=== PATIENT | female | born 1975 | race Caucasian/White ===

== ENCOUNTER 2017-10-06 23:16 | Inpatient (IN) | payer OTHER ==
[~2017-10-06] VITALS: Ht 165.1 cm; Wt 72.2 kg
[2017-10-06 23:58] VITALS: Ht 165.1 cm; Wt 72.2 kg
[2017-10-07 00:46] LABS: BASOPHIL % 0.4 % (0-2); PLATELET COUNT 222 x10^3mcL (130-400); RED CELL DISTRIBUTION WIDTH 13.1 % (11.5-14.5)
[2017-10-07 01:04] LABS: ALBUMIN 3.7 g/dL (3.4-5.0); ALKALINE PHOSPHATASE 65 U/L (46-116); ALT/SGPT 68 U/L (14-59); AMYLASE 86 U/L (25-115); AST/SGOT 41 U/L (15-37); BILIRUBIN TOTAL 0.3 mg/dL (0.20-1.00); CALCIUM 8.6 mg/dL (8.5-10.1); CARBON DIOXIDE 28.8 mmol/L (21-32); CHLORIDE SERUM 100 mmol/L (98-107); CHOLESTEROL 110 mg/dL (<200); CREATININE SERUM 0.8 mg/dL (0.6-1.0); GFR1 > 60 mL/min; GLUCOSE SERUM 151 mg/dL (74-106); HDL CHOLESTEROL 40 mg/dL (40-60); LIPASE 115 IU/L (73-393); SODIUM SERUM 141 mmol/L (136-145); TOTAL PROTEIN, SERUM 8.4 g/dL (6.4-8.2)
[2017-10-07 01:06] LABS: POTASSIUM SERUM 2.7 mmol/L (3.5-5.1)
[2017-10-07 01:13] LABS: UA SPECIFIC GRAVITY 1.025 (1.005-1.035); microscopic required? YES; urine erythrocyte NEGATIVE (NEGATIVE)
[2017-10-07 01:25] LABS: AMPHETAMINE QUAL UR NONE DETECTED (NEG <=1000)
[2017-10-07] MEDS ORDERED: HUMALIN R SQ (01:26)
[2017-10-07] MEDS ORDERED: LANTUS SOLOS100 U/M1 SQ (01:27)
[2017-10-07 02:48] VITALS: BP 133/50
[2017-10-07 06:35] LABS: CARBON DIOXIDE 25.5 mmol/L (21-32); CHLORIDE SERUM 106 mmol/L (98-107); CREATININE SERUM 0.5 mg/dL (0.6-1.0); GFR1 > 60 mL/min; GLUCOSE SERUM 107 mg/dL (74-106); MAGNESIUM 1.8 mg/dL (1.8-2.4); SODIUM SERUM 143 mmol/L (136-145)
[2017-10-07 06:49] VITALS: BP 159/78
[2017-10-07 08:15] VITALS: BP 141/73
[2017-10-07 17:16] VITALS: BP 142/70
[2017-10-07 19:25] VITALS: BP 139/78
[2017-10-07 21:22] VITALS: BP 134/79
[2017-10-08 05:22] VITALS: BP 126/72
[2017-10-08 09:56] VITALS: BP 131/84
[2017-10-08 12:34] LABS: CALCIUM 7.9 mg/dL (8.5-10.1); CARBON DIOXIDE 23.8 mmol/L (21-32); CHLORIDE SERUM 105 mmol/L (98-107); CREATININE SERUM 0.6 mg/dL (0.6-1.0); GFR1 > 60 mL/min; GLUCOSE SERUM 205 mg/dL (74-106); MAGNESIUM 1.7 mg/dL (1.8-2.4); POTASSIUM SERUM 3.8 mmol/L (3.5-5.1); SODIUM SERUM 141 mmol/L (136-145)
[2017-10-08 13:15] VITALS: BP 131/84
[2017-10-08 13:45] VITALS: BP 140/82
== END 2017-10-08 14:00 | disposition home or self-care (01) | DRG 48 ==
LOC: ED 23:16 → DU 10-07 01:19
PROVIDERS: Emergency Medicine; Internal Medicine Pulmonary Disease
DX: E11.43 Type 2 diabetes mellitus with diabetic autonomic (poly)neuropathy (principal); E11.65 Type 2 diabetes mellitus with hyperglycemia; K31.84 Gastroparesis; Z88.6 Allergy status to analgesic agent; E87.6 Hypokalemia
CPT/HCPCS: 36600; 82962; 83880; J2405; J2550; J3480; J3490; J7030; Q9966

== ENCOUNTER 2018-02-24 05:54 | Inpatient (IN) | payer OTHER ==
[~2018-02-24] VITALS: Ht 165.1 cm; Wt 76.7 kg
[~2018-02-24 05:54] MED LIST: HUMALIN R SQ; LANTUS SOLOS100 U/M1 SQ
[2018-02-24 06:43] LABS: BASOPHIL % 0.6 % (0-2); PLATELET COUNT 231 x10^3mcL (130-400); RED CELL DISTRIBUTION WIDTH 13.2 % (11.5-14.5)
[2018-02-24 06:57] LABS: ALBUMIN 3.6 g/dL (3.4-5.0); ALKALINE PHOSPHATASE 76 U/L (46-116); ALT/SGPT 43 U/L (14-59); AST/SGOT 32 U/L (15-37); BILIRUBIN TOTAL 0.22 mg/dL (0.20-1.00); CALCIUM 8.4 mg/dL (8.5-10.1); CARBON DIOXIDE 21.1 mmol/L (21-32); CHLORIDE SERUM 104 mmol/L (98-107); CREATININE SERUM 0.7 mg/dL (0.6-1.0); GFR1 > 60 mL/min; GLUCOSE SERUM 173 mg/dL (74-106); SODIUM SERUM 140 mmol/L (136-145); TOTAL PROTEIN, SERUM 7.8 g/dL (6.4-8.2)
[2018-02-24 07:13] LABS: POTASSIUM SERUM 2.8 mmol/L (3.5-5.1)
[2018-02-24 08:59] LABS: microscopic required? YES; urine erythrocyte 3+ (NEGATIVE)
[2018-02-24 10:51] VITALS: BP 145/85
[2018-02-24 11:16] VITALS: BP 145/85
[2018-02-24 13:12] VITALS: BP 140/78
[2018-02-24 16:12] VITALS: BP 126/75
[2018-02-24 20:55] VITALS: BP 132/68
[2018-02-25 05:49] VITALS: BP 109/62
[2018-02-25 06:31] LABS: BASOPHIL % 0.5 % (0-2); PLATELET COUNT 253 x10^3mcL (130-400); RED CELL DISTRIBUTION WIDTH 13.4 % (11.5-14.5)
[2018-02-25 07:03] LABS: CALCIUM 7.4 mg/dL (8.5-10.1); CARBON DIOXIDE 24.2 mmol/L (21-32); CHLORIDE SERUM 109 mmol/L (98-107); CREATININE SERUM 0.6 mg/dL (0.6-1.0); GFR1 > 60 mL/min; GLUCOSE SERUM 129 mg/dL (74-106); MAGNESIUM 2.3 mg/dL (1.8-2.4); PHOSPHOROUS 2.3 mg/dL (2.5-4.9); SODIUM SERUM 142 mmol/L (136-145)
[2018-02-25 09:44] VITALS: BP 127/67
[2018-02-25 13:23] VITALS: BP 122/68
[2018-02-25 17:16] VITALS: BP 135/76
[2018-02-25 19:41] VITALS: Ht 165.1 cm; Wt 76.7 kg
[2018-02-25 21:05] VITALS: BP 153/82
[2018-02-26 04:44] VITALS: BP 109/76
[2018-02-26 09:17] VITALS: BP 137/73
[2018-02-26 10:39] LABS: CALCIUM 8.2 mg/dL (8.5-10.1); CARBON DIOXIDE 27.5 mmol/L (21-32); CHLORIDE SERUM 104 mmol/L (98-107); CREATININE SERUM 0.7 mg/dL (0.6-1.0); GFR1 > 60 mL/min; GLUCOSE SERUM 188 mg/dL (74-106); POTASSIUM SERUM 4.1 mmol/L (3.5-5.1); SODIUM SERUM 138 mmol/L (136-145)
[2018-02-26 10:49] LABS: BASOPHIL % 0.4 % (0-2); PLATELET COUNT 254 x10^3mcL (130-400); RED CELL DISTRIBUTION WIDTH 13.1 % (11.5-14.5)
[2018-02-26 12:49] VITALS: BP 132/68
[2018-02-26 13:28] VITALS: BP 161/78
== END 2018-02-26 13:37 | disposition home or self-care (01) | DRG 48 ==
LOC: ED 05:54 → DU 10:06
PROVIDERS: Emergency Medicine Emergency Medical Services; Internal Medicine Pulmonary Disease
DX: E11.43 Type 2 diabetes mellitus with diabetic autonomic (poly)neuropathy (principal); E11.65 Type 2 diabetes mellitus with hyperglycemia; K31.84 Gastroparesis; E86.0 Dehydration; E87.6 Hypokalemia; Z88.5 Allergy status to narcotic agent
CPT/HCPCS: J1644; J1815; J2405; J2765; J3480; J7030

== ENCOUNTER 2018-12-29 21:42 | Emergency (ER) | payer OTHER ==
[~2018-12-29] VITALS: Ht 165.1 cm; Wt 71.2 kg
[2018-12-29 21:52] VITALS: Ht 165.1 cm; Wt 71.2 kg
[2018-12-29 23:04] LABS: CARBON DIOXIDE 20.1 mmol/L (21-32); CHLORIDE SERUM 102 mmol/L (98-107); CREATININE SERUM 0.7 mg/dL (0.6-1.0); GFR1 > 60 mL/min; GLUCOSE SERUM 218 mg/dL (74-106); POTASSIUM SERUM 3.4 mmol/L (3.5-5.1); SODIUM SERUM 139 mmol/L (136-145)
[2018-12-29 23:09] LABS: ALKALINE PHOSPHATASE 85 U/L (46-116); ALT/SGPT 63 U/L (14-59); AST/SGOT 29 U/L (15-37); BILIRUBIN TOTAL 0.38 mg/dL (0.20-1.00); TOTAL PROTEIN, SERUM 8.1 g/dL (6.4-8.2)
[2018-12-29 23:20] LABS: BASOPHIL % 0.3 % (0-2); PLATELET COUNT 245 x10^3mcL (130-400); RED CELL DISTRIBUTION WIDTH 13.3 % (11.5-14.5)
[2018-12-30 01:39] VITALS: BP 146/90
== END 2018-12-30 01:39 | disposition home or self-care (01) ==
LOC: ED 21:42
PROVIDERS: Emergency Medicine
DX: R42 Dizziness and giddiness (principal); I10 Essential (primary) hypertension; E11.9 Type 2 diabetes mellitus without complications; Z88.5 Allergy status to narcotic agent
CPT/HCPCS: J2405; J2765; J7030